=== PATIENT | female | born 1970 | race Caucasian/White ===

== ENCOUNTER 2025-08-05 12:21 | Outpatient (CLI) | payer OTHER ==
[2025-08-05 14:25] LABS: #Basophils 0.06 10x3/uL (0.0-0.2); #Eosinophils 0.41 10x3/uL (0.0-0.7); #Monocytes 0.34 10x3/uL (0.11-0.59); #Neutrophils 3.27 10x3/uL (1.40-6.50); %Basophils 1.0 % (0.0-1.0); %Eosinophils 6.9 % (0.0-10.0); %Lymphocytes 31.5 % (21.0-51.0); %Monocytes 5.7 % (0.0-10.0); %Neutrophils 54.7 % (42.0-75.0); Hematocrit 45.7 % (36.0-47.0); Hemoglobin 14.7 g/dL (12.0-16.0); Mean Corpuscular Hemoglobin 28.8 pg (27.0-31.0); Mean Corpuscular Volume 89.4 fL (78.0-98.0); Platelet Count 346 10x3/uL (130-400); Red Blood Cell (RBC) Count 5.11 mill/uL (4.20-5.40); White Blood Cell (WBC) Count 5.97 10x3/uL (4.8-10.8)
[2025-08-05 14:39] LABS: Bacteria/HPF 1+ HPF (None Seen); Glucose, Urine (Dipstick) Normal (Negative); Leukocyte Negative Leu/uL (Negative); Protein, Urine (Dipstick) Negative (Neg-Trace); RBC/HPF 0-3 HPF (0-3); Specific Gravity, Urine 1.017 (1.002-1.036); WBC/HPF 0-3 HPF (0-3)
[2025-08-05 14:41] LABS: INR-International Normal Ratio 1.0; PTT 31.1 sec (22.9-36.1); Prothrombin Time 13.7 sec (12.0-14.7)
[2025-08-05 14:51] LABS: Anion Gap 15 mmol/L (10-20); BUN (Urea Nitrogen) 11 mg/dL (9.8-20.1); Calc. Creatinine Clearance 0 mL/min (70-130); Calcium 9.8 mg/dL (7.8-10.44); Carbon Dioxide 25 mmol/L (22-29); Chloride 103 mmol/L (98-107); Glucose 77 mg/dL (70-105); Potassium 3.7 mmol/L (3.5-5.1); Sodium 139 mmol/L (136-145)
== END 2025-08-05 12:22 | disposition home or self-care (01) ==
LOC: LABBT 12:21
PROVIDERS: ATTEND Urology
DX: Z01.818 Encounter for other preprocedural examination (principal); N39.46 Mixed incontinence
CPT/HCPCS: 80048; 81001; 85025; 85610; 85730; 87086; 93005; 93010

== ENCOUNTER 2025-08-19 06:44 | Day surgery (SDC) | payer OTHER ==
[2025-08-05 12:31] VITALS: BMI 28.1
[2025-08-19] MEDS ORDERED: Ondansetron PF 4 MG/2 ML Vial ONE (07:11)
[2025-08-19] MEDS ORDERED: Lidocaine 1% PF 5 ML VIAL ONE (07:11)
[2025-08-19] MEDS ORDERED: Famotidine/PF 20 mg/2ml Vial ONE (07:50)
[2025-08-19] MEDS ORDERED: LevoFLOXacin D5W 500 mg (100 mL) BAG ONE (07:53)
[2025-08-19] MEDS ORDERED: PROPOFOL 200 MG/20 ML VIAL ONE (08:25)
[2025-08-19] MEDS ORDERED: PHENYLEPHRINE-NS 100 MCG/ML 10 ML SYRINGE ONE (08:41)
== END 2025-08-19 10:56 | disposition home or self-care (01) ==
LOC: SDC 06:44
PROVIDERS: ATTEND Urology
PROC: 0TVC8ZZ Restriction of Bladder Neck, Via Natural or Artificial Opening Endoscopic (ICD-10-PCS; principal; 2025-08-19)
DX: N39.3 Stress incontinence (female) (male) (principal); Z87.891 Personal history of nicotine dependence
CPT/HCPCS: J1100; J1308; J1956; J2250; J2405; J2704; J3010; L8606